=== PATIENT | female | born 1940 | race Caucasian/White ===

== ENCOUNTER 2018-02-24 21:30 | Emergency (ER) | payer MEDICARE, OTHER ==
[~2018-02-24] VITALS: Ht 149.9 cm; Wt 77.0 kg
[2018-02-24] MEDS ORDERED: IBUPROFEN 600MG TABLET PO ONE (23:15)
[2018-02-24] MEDS ORDERED: ACETAMINOPHEN 325MG TABLET PO ONE (23:15)
[2018-02-25 04:33] VITALS: BP 142/66
== END 2018-02-25 04:42 | disposition home or self-care (01) ==
LOC: ER 22:36
DX: S70.00XA Contusion of unspecified hip, initial encounter (principal); M54.5 Low back pain; S80.10XA Contusion of unspecified lower leg, initial encounter; W01.0XXA Fall on same level from slipping, tripping and stumbling without subsequent striking against object, initial encounter; Y93.89 Activity, other specified; Y92.520 Airport as the place of occurrence of the external cause; I10 Essential (primary) hypertension; E11.9 Type 2 diabetes mellitus without complications; M20.11 Hallux valgus (acquired), right foot; E78.00 Pure hypercholesterolemia, unspecified; Z86.73 Personal history of transient ischemic attack (TIA), and cerebral infarction without residual deficits
CPT/HCPCS: 72192; 73522; 73590; 73610; 73630; 99284